=== PATIENT | male | born 1985 | race Two or more races ===

== ENCOUNTER 2017-03-10 05:24 | Observation (INO) | payer OTHER ==
[~2017-03-10] VITALS: Ht 172.7 cm; Wt 68.2 kg
[2017-03-10 06:21] LABS: HEMATOCRIT 44.7 % (39.2-51.8); HEMOGLOBIN 14.3 g/dL (13.7-18.0); WHITE BLOOD COUNT 7.8 x10^3/uL (3.4-10)
[2017-03-10 06:27] LABS: BLOOD UREA NITROGEN 10 mg/dL (7-18)
[2017-03-10 06:32] LABS: DAU SCREEN DISCLAIMER
[2017-03-10 06:41] LABS: ACETAMINOPHEN < 2 mcg/mL (10-30)
[2017-03-10] MEDS ORDERED: OLANZAPINE 5 MG TABLET PO ONE (10:00)
[2017-03-10] MEDS ORDERED: DIPHENHYDRAMINE 50 MG CAPSULE PO PRN (13:00)
[2017-03-10] MEDS ORDERED: ENALAPRILAT 1.25 MG/ML, 2ML IVPush PRN (13:00)
[2017-03-10] MEDS ORDERED: ACETAMINOPHEN 325 MG TABLET PO PRN (13:00)
[2017-03-10] MEDS: OLANZAPINE 5 MG TABLET PO SCH (21:00)
[2017-03-10] MEDS ORDERED: ZIPRASIDONE 20 MG INJ IM ONE ×2 (22:44→23:00)
[2017-03-10] MEDS ORDERED: LORazepam 2 MG/ML, 1ML ONE (23:28)
[2017-03-10] MEDS ORDERED: DIPHENHYDRAMINE 50 MG/ML, 1ML ONE (23:28)
[2017-03-10] MEDS ORDERED: LORazepam 2 MG/ML, 1ML IM ONE (23:30)
[2017-03-10] MEDS ORDERED: DIPHENHYDRAMINE 50 MG/ML, 1ML IM ONE (23:30)
[2017-03-11 05:13] LABS: BLOOD UREA NITROGEN 14 mg/dL (7-18)
[2017-03-11 16:43] VITALS: BP 144/97
[2017-03-11] MEDS: OLANZAPINE 5 MG TABLET PO SCH (21:00)
[2017-03-12 07:57] VITALS: BP 145/108
== END 2017-03-12 11:30 | disposition short-term general hospital (02) ==
LOC: ED 06:32 → INTOOBSV 11:55 → EDIP 11:55 → 3E 03-11 16:37
PROVIDERS: ADMIT Family Medicine; ATTEND Family Medicine
DX: R45.851 Suicidal ideations (principal); F20.0 Paranoid schizophrenia; F32.9 Major depressive disorder, single episode, unspecified
CPT/HCPCS: 36415; 80048; 80307; 80329; 82040; 84439; 84443; 85025; 96372; 99285; G0378; J1200; J2060; J3486; G0480